=== PATIENT | female | born 1975 | race Asian ===

== ENCOUNTER 2019-06-29 21:49 | Emergency (ER) | payer MEDICAID, OTHER ==
[~2019-06-29] VITALS: Ht 162.6 cm; Wt 90.7 kg
[~2019-06-29 21:49] MED LIST: ATEN-41 PO; DOSTINEX PO; LEVO100T9 PO
[2019-06-29 22:01] VITALS: BP_SYST 112
--- NOTE | 2019-06-29 22:07 | NUR ---
Patient triaged and placed in waiting room. VSS and patient appears in no acute distress at this time. Accompanied by self, awaiting available bed, and MD notified of need for MSE.
--- NOTE | 2019-06-29 23:50 | NUR ---
Patient complains of cough, runny nose, and "burning sensation to throat" for the past week. Pt states she had left over Amoxicillin 500mg PO from last year and finished the last 5 pills. Pt states after taking the last one today, she started to feel sick again. Pt wants more Amoxicillin. No other injuries/complaints per patient or noted.
--- NOTE | 2019-06-30 | NUR ---
ER Dr. Hirsch in Triage examining patient.
[2019-06-30 00:32] VITALS: BP_SYST 119
--- NOTE | 2019-06-30 00:32 | NUR ---
Patient given written and verbal discharge instructions and verbalizes understanding. ER MD discussed with patient the results and treatment provided. Patient in stable condition. ID arm band removed. Rx of Tessalon and Amoxicillin given. Patient educated on pain management and to follow up with PMD. Pain Scale 0. Opportunity for questions provided and answered. Medication side effect fact sheet provided.
== END 2019-06-30 00:32 | disposition home or self-care (01) ==
LOC: SED 21:49
DX: H66.92 Otitis media, unspecified, left ear (principal); J06.9 Acute upper respiratory infection, unspecified; I10 Essential (primary) hypertension; Z79.899 Other long term (current) drug therapy
CPT/HCPCS: 99283